=== PATIENT | male | born 1945 | race Caucasian/White ===

== ENCOUNTER → 2019-01-17 | Outpatient (CLI) | payer OTHER ==
[~2019-01-17] VITALS: Ht 177.8 cm; Wt 74.8 kg
[~2019-01-17] MED LIST: BENTYL 20 MG TA20 M1 PO; ENALAPRIL MALEA20 MG PO; OMEPRAZOLE 20 M20 M1 PO; ZYLOPRIM300 MG PO
--- NOTE | ~2019-01-17 | P ---
[facility] [place] [address] PROCEDURE REPORT Name: STEPHENIE HAJI Room #: REG [facility]#: [id number] Admission: 01/17/19 ������������������ Attend Phys: Rodrigo Galarza MD Discharge: ������������������ Date of : 49 Report #: [id number] THIS REPORT FOR: //name// CC: Shon Galarza BRIEF HISTORY: The patient is a 73-year-old male with history of colon polyps, for high risk screening colonoscopy. PREOPERATIVE DIAGNOSIS: High risk screening colonoscopy. POSTOPERATIVE DIAGNOSES: 1. Diminutive colon polyps. 2. Moderate diverticulosis coli, right and left colon. 3. Moderate internal hemorrhoids. MEDICATIONS: Deep sedation with propofol per anesthesia. SPECIMENS: 1. Diminutive polyp at 50 cm. 2. Polyps x 2 at 60 cm. ESTIMATED BLOOD LOSS: 3 mL. PROCEDURE: Colonoscopy to cecum and terminal ileum with biopsy findings. DESCRIPTION OF PROCEDURES: With the patient in left lateral decubitus position, digital examination was completed, which revealed no abnormalities. Subsequently, the Olympus video colonoscope was introduced in the rectum, advanced under direct vision to the cecum. Done with minimal difficulty. The cecum was identified by the ileocecal valve and the appendiceal orifice. I was able to visualize the distal segment of the terminal ileum, which was inspected and noted to be unremarkable. At that point, the scope was slowly withdrawn and careful circumferential views were obtained. Upon slow withdrawal of the scope, the prep was noted to be good. The mucosa was within normal limits, normal vascular pattern and normal light reflex. As we withdrew the scope, he was noted to have moderate diverticular disease of the cecum and ascending colon. Significant diverticular disease was not seen in the transverse colon, but he was noted to have moderate diverticular disease in the left colon, particularly the sigmoid colon. There was no endoscopic evidence of diverticulitis. In addition, at 60 cm, 2 diminutive polyps were seen and removed by biopsy. At 50 cm, another diminutive polyp was seen and removed with biopsy forceps. Scope was further withdrawn and other than diverticular disease, no additional abnormalities were seen. The scope was withdrawn in the rectum. Upon retroflexion, moderate internal hemorrhoids were seen. Scope was withdrawn. The patient tolerated the procedure well. [address] [address] PROCEDURE REPORT Name: STEPHENIE HAJI Room #: REG [facility]#: [id number] Admission: 01/17/19 ������������������ Attend Phys: Rodrigo Galarza MD Discharge: ������������������ Date of : 49 Report #: [id number] CONDITION OF THE PATIENT UPON DISCHARGE: Following procedure, the patient drowsy, aroused, conversant and will be discharged to home when fully ambulatory. INSTRUCTIONS TO THE PATIENT AND FAMILY AT THE TIME OF DISCHARGE: We will follow up on the path of the polyps. If all 3 are adenomas, he is to return in 3 years; if only 1 or 2, then 5 years; if none, then 10 years would be indicated. He will otherwise return to care of Dr. Alexandre Kasper and return to see me as needed. Also, suggest high-fiber diet. Last colonoscopy was about 7 years ago. Withdrawal time from cecum was 13 minutes 26 seconds. ��������������������������������������������� ���������������������������������������� By: ��������������������������������������������� [id number] Rodrigo Galarza MD /nt
--- NOTE | 2019-01-18 17:06 | PATH ---
[facility] [place] [address] PATHOLOGY RPT PROCEDURE Name: STEPHENIE HAJI Room #: REG [facility]#: [id number] ������������������ Admission: 01/17/19 ������������������ Date of : 49 Discharge: Report #: [id number] Path Case #: [id number] [facility] Accession Number: [id number] . 01 Material submitted: . PART A: colon - BX POLYP AT 50CM PART B: colon - BX POLYP AT 60CM X2 . 01 Clinical history: . Pre-OP DX: Hx polyps Post-OP DX: Colon polyps, diverticulosis, hemorrhoids . 02 Diagnosis: A. Polyp, at 50 cm, endoscopic biopsy: - Tubular adenoma. - Negative for high grade dysplasia. . . B. Polyp x 2, at 60 cm, endoscopic biopsy: - Tubular adenoma. - Negative for high grade dysplasia. (IUV/db; 01/18/2019) LBQ/01/18/2019 . 02 Electronically signed: . Leeanna Velazquez MD, Pathologist NPI- [id number] . 01 Gross description: . A. Received in formalin labeled "Stephenie Haji BX polyp at 50 cm," is a single segment of edwards soft tissue measuring 0.5 cm in maximum dimension. The specimen is entirely submitted in cassette A1. . B. Received in formalin labeled "Stephenie Haji BX polyp at 60 cm x2," are 2 segments of edwards soft tissue measuring 1.1 x 0.3 x 0.2 cm in aggregate dimensions and ranging from 0.5 to 0.6 cm in maximum dimension. The specimen is submitted entirely in cassette B1. (TSD; 01/17/2019) TOB/TOB . 02 Pathologist provided ICD-10: D12.6 . 02 CPT . 071828, [id number] Specimen Comment: A courtesy copy of this report has been sent to Specimen Comment: [phone], , [place] [address] PATHOLOGY RPT PROCEDURE Name: STEPHENIE HAJI Room #: REG [facility] Terri#: [id number] ������������������ Admission: 01/17/19 ������������������ Date of : 49 Discharge: Report #: [id number] Path Case #: [id number] Specimen Comment: Report sent to ,DR CHEUNG / DR HEARD Performed at: 01 [facility] [address], [place], [place] [id number] MD Lauro Chambers MD Phone: [phone] Performed at: [address] [id number] MD Leeanna Velazquez MD Phone: [phone]
== END | disposition home or self-care (01) ==
LOC: GI 08:07
DX: Z12.11 Encounter for screening for malignant neoplasm of colon (principal); Z86.010 Personal history of colon polyps; D12.5 Benign neoplasm of sigmoid colon; D12.4 Benign neoplasm of descending colon; K57.30 Diverticulosis of large intestine without perforation or abscess without bleeding; K64.8 Other hemorrhoids; I10 Essential (primary) hypertension; K21.9 Gastro-esophageal reflux disease without esophagitis; Z85.828 Personal history of other malignant neoplasm of skin; Z87.442 Personal history of urinary calculi; Z87.891 Personal history of nicotine dependence; Z98.890 Other specified postprocedural states; Z79.899 Other long term (current) drug therapy
CPT/HCPCS: 62110; 62900